=== PATIENT | female | born 1940 | race African-American/Black ===

== ENCOUNTER 2017-04-13 17:45 | Emergency (ER) | payer MEDICARE, OTHER ==
[~2017-04-13] VITALS: Ht 165.1 cm; Wt 95.0 kg
[2017-04-13 18:56] LABS: BASOPHILS % 0.6 % (0.0-2.0); EOSINOPHILS % 6.5 % (0.0-5.0); HEMATOCRIT. 41.4 % (36.0-48.0); HEMOGLOBIN. 13.6 g/dL (12.0-16.0); LYMPHOCYTES % 31.1 % (20.0-50.0); MEAN CORPUSCULAR HEMOGLOBIN 28.9 pg (28.0-32.0); MEAN CORPUSCULAR VOLUME 88.1 fL (81.0-99.0); MEAN PLATELET VOLUME 11.2 fl (7.4-10.4); MONOCYTES % 6.6 % (2.0-8.0); NEUTROPHILS % 55.2 % (40.0-76.0); PLATELET 148 x1000/uL (130-400); RED CELL DISTRIBUTION WIDTH 13.7 % (11.6-14.6)
[2017-04-13 18:59] LABS: CHLORIDE 106 mEq/L (98-107); INR 1.2; PROTHROMBIN TIME 12.1 sec (9.4-11.6)
[2017-04-13 19:03] LABS: ETHANOL BLOOD < 10 mg/dL
[2017-04-13 19:09] LABS: TROPONIN I < 0.02 ng/mL (0.00-0.04)
[2017-04-13] MEDS ORDERED: LEVETIRACETAM 1000MG/100ML 100 ML IV ONE (20:00)
[2017-04-13 20:28] LABS: CLARITY URINE CLOUDY (CLEAR); COLOR URINE YELLOW (YELLOW); KETONES URINE NEGATIVE (NEGATIVE); LEUKOCYTE ESTERASE URINE 2+ (NEGATIVE); NITRITE URINE POSITIVE (NEGATIVE); OCCULT BLOOD URINE TRACE (NEGATIVE); PROTEIN URINE NEGATIVE (NEGATIVE); SPECIFIC GRAVITY URINE 1.013 (1.005-1.030); UROBILINOGEN URINE 0.2 E.U./dL (0.2-1.0)
[2017-04-13 20:48] LABS: *AMPHETAMINES SCREEN URINE NEGATIVE (NEGATIVE); *BENZODIAZEPINES SCREEN URINE NEGATIVE (NEGATIVE); *COCAINE SCREEN URINE NEGATIVE (NEGATIVE); CANNABINOID URINE SCREEN NEGATIVE (NEGATIVE); METHADONE URINE SCREEN NEGATIVE (NEGATIVE); OPIATES URINE SCREEN NEGATIVE (NEGATIVE); PHENCYCLIDINE URINE SCREEN NEGATIVE (NEGATIVE)
[2017-04-13 20:50] LABS: *BARBITURATES SCREEN URINE NEGATIVE (NEGATIVE)
[2017-04-13] MEDS ORDERED: CEFTRIAXONE 1 G PREMIX 50 ML IV SCH (21:15)
[2017-04-13 23:02] VITALS: BP 132/61
== END 2017-04-13 23:05 | disposition home or self-care (01) ==
LOC: ER 17:45
DX: G40.409 Other generalized epilepsy and epileptic syndromes, not intractable, without status epilepticus (principal); N39.0 Urinary tract infection, site not specified; E88.09 Other disorders of plasma-protein metabolism, not elsewhere classified; I10 Essential (primary) hypertension; I25.10 Atherosclerotic heart disease of native coronary artery without angina pectoris; Z86.73 Personal history of transient ischemic attack (TIA), and cerebral infarction without residual deficits
CPT/HCPCS: 36415; 70450; 71045; 80053; 80305; 81003; 82962; 84484; 85025; 85610; 87086; 93005; 96365; 96367; 99285; G0482; J0696; J1953

== ENCOUNTER 2019-09-22 10:35 | Inpatient (IN) | payer MEDICARE, OTHER ==
[~2019-09-22] VITALS: Ht 170.2 cm; Wt 88.0 kg
[2019-09-22] VITALS (10 sets, daily range): BP systolic 104–126; BP diastolic 47–60
[2019-09-22] MEDS ORDERED: MULT-996 MT (11:05)
[2019-09-22] MEDS ORDERED: CORAL CALCIUM (11:05)
[2019-09-22] MEDS ORDERED: METH10TA7 MT (11:05)
[2019-09-22] MEDS ORDERED: CITA20TA75 MT (11:05)
[2019-09-22] MEDS ORDERED: LEVE500T98 MT (11:05)
[2019-09-22] MEDS ORDERED: LOSA50TA41 MT (11:05)
[2019-09-22] MEDS ORDERED: RIVA20TA MT (11:05)
[2019-09-22] MEDS ORDERED: POTA20TA82 MT (11:05)
[2019-09-22] MEDS ORDERED: LOVA40TA73 MT (11:05)
[2019-09-22] MEDS ORDERED: DILT60TA3 MT (11:05)
[2019-09-22] MEDS ORDERED: PANTOPRAZOLE SODIUM 40 MG/VIAL IV ONE ×2 (11:15→12:00)
[2019-09-22] MEDS ORDERED: PANTOPRAZOLE 80 MG in SODIUM CHLORIDE 0.9% 100 ML IV SCH (11:15)
[2019-09-22 11:58] LABS: EOSINOPHILS % 1.7 % (0.0-5.0); LYMPHOCYTES % 29.9 % (20.0-50.0); MEAN CORPUSCULAR HEMOGLOBIN 25.4 pg (28.0-32.0); MEAN CORPUSCULAR VOLUME 80.2 fL (81.0-99.0); MEAN PLATELET VOLUME 9.5 fl (7.4-10.4); MONOCYTES % 8.7 % (2.0-8.0); NEUTROPHILS % 58.7 % (40.0-76.0); PLATELET 211 x1000/uL (130-400); RED BLOOD CELL COUNT 2.05 mill/uL (4.2-5.4); RED CELL DISTRIBUTION WIDTH 18.5 % (11.6-14.6)
[2019-09-22 12:00] LABS: CHLORIDE 115 mEq/L (98-107)
[2019-09-22 12:01] LABS: HEMATOCRIT. 16.5 % (36.0-48.0); HEMOGLOBIN. 5.2 g/dL (12.0-16.0); INR 1.4; PARTIAL THROMBOPLASTIN TIME 30.2 sec (23.4-31.0); PROTHROMBIN TIME 14.1 sec (9.6-11.0)
[2019-09-22] MEDS ORDERED: DILTIAZEM HCL 5MG/ML 5ML VIAL IV NR (12:15)
[2019-09-22] MEDS: SODIUM CHLORIDE 0.9% 1,000 ML IV SCH (18:41)
[2019-09-22] MEDS ORDERED: ONDANSETRON HCL 4MG/2ML INJ IV PRN (20:00)
[2019-09-22] MEDS ORDERED: IPRATROPIUM/ALBUTEROL 0.5-3(2.5)MG/3ML NEB HHN PRN (20:00)
[2019-09-22] MEDS: PANTOPRAZOLE SODIUM 40 MG/VIAL IV SCH (21:08)
[2019-09-23] VITALS (16 sets, daily range): BP systolic 112–138; BP diastolic 47–76
[2019-09-23 00:12] LABS: BASOPHILS % 0.2 % (0.0-2.0); EOSINOPHILS % 0.6 % (0.0-5.0); HEMATOCRIT. 25.2 % (36.0-48.0); HEMOGLOBIN. 8.2 g/dL (12.0-16.0); MEAN CORPUSCULAR HEMOGLOBIN 27.9 pg (28.0-32.0); MEAN CORPUSCULAR VOLUME 85.7 fL (81.0-99.0); MEAN PLATELET VOLUME 9.8 fl (7.4-10.4); MONOCYTES % 7.6 % (2.0-8.0); NEUTROPHILS % 74.6 % (40.0-76.0); PLATELET 170 x1000/uL (130-400); RED BLOOD CELL COUNT 2.94 mill/uL (4.2-5.4); RED CELL DISTRIBUTION WIDTH 17.8 % (11.6-14.6)
[2019-09-23] MEDS: SODIUM CHLORIDE 0.9% 1,000 ML IV SCH ×2 (04:43→13:45)
[2019-09-23 07:34] LABS: BASOPHILS % 0.8 % (0.0-2.0); EOSINOPHILS % 0.8 % (0.0-5.0); HEMATOCRIT. 23.4 % (36.0-48.0); HEMOGLOBIN. 7.9 g/dL (12.0-16.0); LYMPHOCYTES % 15.5 % (20.0-50.0); MEAN CORPUSCULAR HEMOGLOBIN 28.6 pg (28.0-32.0); MONOCYTES % 5.5 % (2.0-8.0); NEUTROPHILS % 77.4 % (40.0-76.0); PLATELET 156 x1000/uL (130-400); RED BLOOD CELL COUNT 2.75 mill/uL (4.2-5.4); RED CELL DISTRIBUTION WIDTH 18.4 % (11.6-14.6)
[2019-09-23] MEDS: PANTOPRAZOLE SODIUM 40 MG/VIAL IV SCH ×2 (08:37→21:07)
[2019-09-23] MEDS ORDERED: MIDAZOLAM HCL 5 MG/5 ML VIAL ONE ×2 (10:33→10:34)
[2019-09-23] MEDS ORDERED: FENTANYL CITRATE/PF 50MCG/ML 2ML VIAL ONE (10:33)
[2019-09-23] MEDS ORDERED: FENTANYL CITRATE/PF 50MCG/ML 2ML VIAL IV ONE (10:57)
[2019-09-23] MEDS ORDERED: MIDAZOLAM HCL 5 MG/5 ML VIAL IV ONE (10:58)
[2019-09-23 11:06] LABS: INR 1.1
[2019-09-23] MEDS ORDERED: SORBITOL 70% SOLN 30ML PO NR ×2 (17:30→21:00)
[2019-09-23] MEDS ORDERED: NA PHOS,M-B/NA PHOS,DI-BA ENEMA 118ML PR NR (17:30)
[2019-09-23 20:28] LABS: HEMATOCRIT 20.9 % (36.0-48.0)
[2019-09-24] VITALS (12 sets, daily range): BP systolic 116–128; BP diastolic 58–80
[2019-09-24] MEDS: SODIUM CHLORIDE 0.9% 1,000 ML IV SCH ×3 (00:39→19:22)
[2019-09-24 01:50] LABS: HEMATOCRIT 27.3 % (36.0-48.0); HEMOGLOBIN 9.3 g/dL (12.0-16.0)
[2019-09-24 06:40] LABS: CHLORIDE 122 mEq/L (98-107)
[2019-09-24] MEDS: DILTIAZEM HCL 125 MG in DEXT 5% WATER 100 ML IV SCH (08:11)
[2019-09-24] MEDS ORDERED: KCL 20MEQ/100ML PREMIX 100 ML IV SCH ×2 (09:00→12:00)
[2019-09-24] MEDS ORDERED: SORBITOL 70% SOLN 30ML PO NR (09:00)
[2019-09-24] MEDS: PANTOPRAZOLE SODIUM 40 MG/VIAL IV SCH ×2 (09:29→20:57)
[2019-09-24] MEDS ORDERED: NA PHOS,M-B/NA PHOS,DI-BA ENEMA 118ML PR NR (11:00)
[2019-09-24] MEDS ORDERED: POTASSIUM CHLORIDE INJ 40 MEQ in DEXT 5% WATER 250 ML IV NR (16:00)
[2019-09-24] MEDS ORDERED: MIDAZOLAM HCL 5 MG/5 ML VIAL IV PRN (17:40)
[2019-09-24] MEDS ORDERED: MIDAZOLAM HCL 5 MG/5 ML VIAL ONE (17:45)
[2019-09-25] VITALS (36 sets, daily range): BP systolic 57–173; BP diastolic 17–118
[2019-09-25] MEDS: DILTIAZEM HCL 125 MG in DEXT 5% WATER 100 ML IV SCH (03:11)
[2019-09-25] MEDS: SODIUM CHLORIDE 0.9% 1,000 ML IV SCH (06:30)
[2019-09-25 07:09] LABS: CHLORIDE 125 mEq/L (98-107)
[2019-09-25 07:17] LABS: TOTAL IRON BINDING CAPACITY 279 ug/dL (250-450)
[2019-09-25 07:36] LABS: VITAMIN B12 SERUM 1839 pg/mL (211-911)
[2019-09-25 07:57] LABS: BASOPHILS % 0.7 % (0.0-2.0); EOSINOPHILS % 2.3 % (0.0-5.0); HEMATOCRIT. 30.4 % (36.0-48.0); HEMOGLOBIN. 9.8 g/dL (12.0-16.0); LYMPHOCYTES % 18.7 % (20.0-50.0); MEAN CORPUSCULAR VOLUME 86.5 fL (81.0-99.0); MEAN PLATELET VOLUME 10.4 fl (7.4-10.4); MONOCYTES % 5.3 % (2.0-8.0); PLATELET 155 x1000/uL (130-400); RED BLOOD CELL COUNT 3.51 mill/uL (4.2-5.4); RED CELL DISTRIBUTION WIDTH 18.2 % (11.6-14.6)
[2019-09-25] MEDS: PANTOPRAZOLE SODIUM 40 MG/VIAL IV SCH ×2 (09:21→22:08)
[2019-09-25] MEDS: DEXT 5% WATER + KCL 20MEQ/L 1,000 ML IV SCH ×2 (10:42→22:17)
[2019-09-25] MEDS: FERROUS SULFATE 325MG TABLET PO SCH ×2 (12:07→19:08)
[2019-09-25 13:19] LABS: T4 FREE 1.25 ng/dL (0.76-1.46)
[2019-09-25] MEDS: DILTIAZEM HCL 30MG TABLET PO SCH ×2 (13:36→22:08)
[2019-09-25] MEDS ORDERED: DILTIAZEM HCL 5MG/ML 5ML VIAL IV ONE ×2 (16:00→16:08)
[2019-09-25 17:08] LABS: BG BASE EXCESS -16.6 mmol/L (-2.0-2.0); BG CARBOXYHEMOGLOBIN 0.2 % (0.5-1.5); BG DEOXYHEMOGLOBIN 3.5 % (0.0-5.0); BG HCO3 ACT 7.5 mmol/L (22.0-26.0); BG METHEMOGLOBIN 1.1 % (0.0-1.5); BG OXYGEN SATURATION 96.5 % (92.0-98.5); BG OXYHEMOGLOBIN 95.2 % (94.0-97.0); BG PCO2 13.2 mmHg (35.0-45.0); BG PO2 97.2 mmHg (75.0-100.0); BG SAMPLE SITE RIGHT RADIAL; BG TIDAL VOLUME(mL) 500 mL; BG TOTAL HEMOGLOBIN 4.6 g/dL (12.0-18.0); BG VENT MODE VENT - A/C; BG VENT RATE 16 set
[2019-09-25] MEDS ORDERED: SODIUM BICARBONATE 8.4% 1 MEQ/ML 50ML SYR IV ONE (17:24)
[2019-09-25] MEDS ORDERED: SODIUM BICARBONATE 8.4% 1 MEQ/ML 50ML SYR IV NR (17:45)
[2019-09-25] MEDS: IPRATROPIUM BROMIDE (0.02%) 0.5MG/2.5ML NEB HHN SCH (20:35)
[2019-09-25] MEDS ORDERED: LORAZEPAM 2MG/ML CPJ ONE (21:25)
[2019-09-25] MEDS ORDERED: LORAZEPAM 2MG/ML CPJ IV ONE (21:30)
[2019-09-25] MEDS: DILTIAZEM HCL 125 MG in DEXT 5% WATER 100 ML IV PRN (22:06)
[2019-09-25] MEDS: LEVETIRACETAM 500MG PREMIX 100 ML IV SCH (22:06)
[2019-09-25] MEDS: PROPOFOL 10MG/ML 100ML 100 ML IV PRN (23:27)
[2019-09-26] VITALS (68 sets, daily range): BP systolic 109–144; BP diastolic 58–79
[2019-09-26] MEDS: IPRATROPIUM BROMIDE (0.02%) 0.5MG/2.5ML NEB HHN SCH ×4 (01:54→20:53)
[2019-09-26] MEDS: DILTIAZEM HCL 30MG TABLET PO SCH ×3 (05:40→23:08)
[2019-09-26] MEDS: DEXT 5% WATER + KCL 20MEQ/L 1,000 ML IV SCH ×4 (05:40→23:08)
[2019-09-26 07:01] LABS: CHLORIDE 119 mEq/L (98-107)
[2019-09-26] MEDS: PANTOPRAZOLE SODIUM 40 MG/VIAL IV SCH ×2 (08:30→20:44)
[2019-09-26 08:31] LABS: BG BASE EXCESS -0.4 mmol/L (-2.0-2.0); BG CARBOXYHEMOGLOBIN 0.2 % (0.5-1.5); BG DEOXYHEMOGLOBIN 1.1 % (0.0-5.0); BG FRACTION INSPIRED OXYGEN 50; BG METHEMOGLOBIN 0.3 % (0.0-1.5); BG OXYGEN SATURATION 98.9 % (92.0-98.5); BG OXYHEMOGLOBIN 98.4 % (94.0-97.0); BG PCO2 28.4 mmHg (35.0-45.0); BG PH 7.507 (7.350-7.450); BG PO2 344.2 mmHg (75.0-100.0); BG SAMPLE SITE RIGHT RADIAL; BG TIDAL VOLUME(mL) 500 mL; BG TOTAL HEMOGLOBIN 10.2 g/dL (12.0-18.0); BG VENT MODE VENT - A/C; BG VENT RATE 16 set
[2019-09-26] MEDS: FERROUS SULFATE 325MG TABLET PO SCH ×2 (08:31→17:46)
[2019-09-26] MEDS: METHIMAZOLE 5MG TABLET NG SCH (08:31)
[2019-09-26] MEDS: PROPOFOL 10MG/ML 100ML 100 ML IV PRN (08:33)
[2019-09-26] MEDS: LEVETIRACETAM 500MG PREMIX 100 ML IV SCH ×2 (09:19→20:44)
[2019-09-26] MEDS ORDERED: POTASSIUM CHLORIDE 20MEQ/PACKET PO NR (10:00)
[2019-09-26 10:26] LABS: HEMATOCRIT. 30.7 % (36.0-48.0); HEMOGLOBIN. 9.9 g/dL (12.0-16.0); MEAN CORPUSCULAR VOLUME 86.6 fL (81.0-99.0); MEAN PLATELET VOLUME 10.7 fl (7.4-10.4); PLATELET 127 x1000/uL (130-400); RED BLOOD CELL COUNT 3.55 mill/uL (4.2-5.4); RED CELL DISTRIBUTION WIDTH 18.9 % (11.6-14.6)
[2019-09-26] MEDS ORDERED: LORAZEPAM 2MG/ML CPJ IV NR (10:45)
[2019-09-26 13:43] LABS: PLATELET ESTIMATE SLIGHTLY DECREASED
[2019-09-26] MEDS: AMIODARONE HCL 200 MG TABLET PO SCH (17:46)
[2019-09-26] MEDS ORDERED: RIVAROXABAN 10 MG TABLET PO SCH (18:20)
[2019-09-27] VITALS (68 sets, daily range): BP systolic 103–158; BP diastolic 46–88
[2019-09-27] MEDS: IPRATROPIUM BROMIDE (0.02%) 0.5MG/2.5ML NEB HHN SCH ×3 (00:27→12:56)
[2019-09-27 05:49] LABS: BASOPHILS % 0.3 % (0.0-2.0); EOSINOPHILS % 1.5 % (0.0-5.0); HEMATOCRIT. 30.7 % (36.0-48.0); HEMOGLOBIN. 9.8 g/dL (12.0-16.0); MEAN CORPUSCULAR HEMOGLOBIN 27.3 pg (28.0-32.0); MEAN CORPUSCULAR VOLUME 85.8 fL (81.0-99.0); MEAN PLATELET VOLUME 9.9 fl (7.4-10.4); MONOCYTES % 7.3 % (2.0-8.0); NEUTROPHILS % 80.9 % (40.0-76.0); PLATELET 90 x1000/uL (130-400); RED BLOOD CELL COUNT 3.58 mill/uL (4.2-5.4); RED CELL DISTRIBUTION WIDTH 18.2 % (11.6-14.6)
[2019-09-27] MEDS: DILTIAZEM HCL 30MG TABLET PO SCH ×3 (05:51→21:48)
[2019-09-27] MEDS: DEXT 5% WATER + KCL 20MEQ/L 1,000 ML IV SCH ×2 (07:07→15:39)
[2019-09-27 07:20] LABS: BG BASE EXCESS -1.1 mmol/L (-2.0-2.0); BG CARBOXYHEMOGLOBIN 0.3 % (0.5-1.5); BG DEOXYHEMOGLOBIN 1.7 % (0.0-5.0); BG FRACTION INSPIRED OXYGEN 35; BG HCO3 ACT 22.3 mmol/L (22.0-26.0); BG METHEMOGLOBIN 0.3 % (0.0-1.5); BG OXYGEN SATURATION 98.3 % (92.0-98.5); BG OXYHEMOGLOBIN 97.7 % (94.0-97.0); BG PCO2 32.3 mmHg (35.0-45.0); BG PH 7.457 (7.350-7.450); BG PO2 135.5 mmHg (75.0-100.0); BG SAMPLE SITE RIGHT RADIAL; BG TIDAL VOLUME(mL) 500 mL; BG TOTAL HEMOGLOBIN 10.1 g/dL (12.0-18.0); BG VENT MODE VENT - A/C; BG VENT RATE 12 set
[2019-09-27 08:16] LABS: CHLORIDE 112 mEq/L (98-107)
[2019-09-27] MEDS: PANTOPRAZOLE SODIUM 40 MG/VIAL IV SCH ×2 (08:27→21:47)
[2019-09-27] MEDS: AMIODARONE HCL 200 MG TABLET PO SCH ×3 (08:27→18:34)
[2019-09-27] MEDS: FERROUS SULFATE 325MG TABLET PO SCH ×2 (08:27→18:34)
[2019-09-27] MEDS: METHIMAZOLE 5MG TABLET NG SCH (08:27)
[2019-09-27] MEDS: DILTIAZEM HCL 125 MG in DEXT 5% WATER 100 ML IV PRN ×2 (09:04→15:29)
[2019-09-27] MEDS: LEVETIRACETAM 500MG PREMIX 100 ML IV SCH ×2 (09:12→21:48)
[2019-09-27] MEDS ORDERED: DILTIAZEM HCL 5MG/ML 5ML VIAL IV NR (09:30)
[2019-09-27] MEDS ORDERED: DILTIAZEM HCL 5MG/ML 5ML VIAL IV ONE (09:30)
[2019-09-27] MEDS: DILTIAZEM HCL 5MG/ML 5ML VIAL IV NR ×3 (10:23→11:11)
[2019-09-27] MEDS ORDERED: MORPHINE SULFATE 2 MG/ML CPJ (NOT FOR IM USE) IV PRN (12:15)
[2019-09-27] MEDS ORDERED: LORAZEPAM 2MG/ML CPJ IV PRN (12:15)
[2019-09-27 13:24] LABS: T4 FREE 1.75 ng/dL (0.76-1.46)
[2019-09-27] MEDS: ENOXAPARIN 30MG/0.3ML SYR SUBCUT SCH ×2 (16:00→16:45)
[2019-09-27] MEDS: ACETAMINOPHEN 325MG TABLET PO PRN ×2 (16:45→19:07)
[2019-09-27] MEDS: ASPIRIN 81MG TABLET PO SCH (16:47)
[2019-09-27] MEDS: METHIMAZOLE 10MG TABLET NG SCH (22:48)
[2019-09-28] VITALS (93 sets, daily range): BP systolic 104–143; BP diastolic 49–87
[2019-09-28] MEDS: IPRATROPIUM BROMIDE (0.02%) 0.5MG/2.5ML NEB HHN SCH ×4 (02:15→20:10)
[2019-09-28] MEDS: METHIMAZOLE 10MG TABLET NG SCH ×3 (05:26→21:54)
[2019-09-28] MEDS: DILTIAZEM HCL 30MG TABLET PO SCH ×3 (05:26→21:54)
[2019-09-28] MEDS: DEXT 5% WATER + KCL 20MEQ/L 1,000 ML IV SCH (05:27)
[2019-09-28 07:10] LABS: HEMATOCRIT. 27.2 % (36.0-48.0); HEMOGLOBIN. 8.9 g/dL (12.0-16.0); MEAN CORPUSCULAR HEMOGLOBIN 27.4 pg (28.0-32.0); MEAN CORPUSCULAR VOLUME 84.1 fL (81.0-99.0); MEAN PLATELET VOLUME 10.4 fl (7.4-10.4); PLATELET 80 x1000/uL (130-400); RED BLOOD CELL COUNT 3.23 mill/uL (4.2-5.4); RED CELL DISTRIBUTION WIDTH 19.2 % (11.6-14.6)
[2019-09-28 07:13] LABS: CHLORIDE 112 mEq/L (98-107)
[2019-09-28] MEDS: FERROUS SULFATE 325MG TABLET PO SCH ×2 (08:41→16:29)
[2019-09-28] MEDS: PANTOPRAZOLE SODIUM 40 MG/VIAL IV SCH ×2 (08:41→20:35)
[2019-09-28] MEDS: ASPIRIN 81MG TABLET PO SCH (08:41)
[2019-09-28] MEDS: AMIODARONE HCL 200 MG TABLET PO SCH ×3 (08:42→16:29)
[2019-09-28] MEDS: LEVETIRACETAM 500MG PREMIX 100 ML IV SCH ×2 (08:42→20:35)
[2019-09-28] MEDS: ENOXAPARIN 30MG/0.3ML SYR SUBCUT SCH (08:42)
[2019-09-28 09:35] LABS: PLATELET ESTIMATE DECREASED
[2019-09-28 12:17] LABS: BG BASE EXCESS 0.4 mmol/L (-2.0-2.0); BG CARBOXYHEMOGLOBIN 0.3 % (0.5-1.5); BG DEOXYHEMOGLOBIN 2.9 % (0.0-5.0); BG FRACTION INSPIRED OXYGEN 30; BG HCO3 ACT 23.1 mmol/L (22.0-26.0); BG METHEMOGLOBIN 0.3 % (0.0-1.5); BG OXYGEN SATURATION 97.1 % (92.0-98.5); BG OXYHEMOGLOBIN 96.5 % (94.0-97.0); BG PCO2 29.9 mmHg (35.0-45.0); BG PH 7.505 (7.350-7.450); BG PO2 90.9 mmHg (75.0-100.0); BG PRESSURE SUPPORT 8; BG SAMPLE SITE RIGHT BRACHIAL; BG TOTAL HEMOGLOBIN 9.3 g/dL (12.0-18.0); BG VENT MODE VENT - CPAP
[2019-09-28] MEDS: ACETAMINOPHEN 325MG TABLET PO PRN (13:20)
[2019-09-28] MEDS: DILTIAZEM HCL 125 MG in DEXT 5% WATER 100 ML IV PRN (14:04)
[2019-09-29] VITALS (88 sets, daily range): BP systolic 93–143; BP diastolic 44–80
[2019-09-29] MEDS: IPRATROPIUM BROMIDE (0.02%) 0.5MG/2.5ML NEB HHN SCH ×5 (03:56→20:56)
[2019-09-29 05:33] LABS: HEMATOCRIT. 27.4 % (36.0-48.0); HEMOGLOBIN. 8.9 g/dL (12.0-16.0); MEAN CORPUSCULAR HEMOGLOBIN 27.6 pg (28.0-32.0); MEAN CORPUSCULAR VOLUME 85.2 fL (81.0-99.0); MEAN PLATELET VOLUME 10.9 fl (7.4-10.4); RED BLOOD CELL COUNT 3.22 mill/uL (4.2-5.4); RED CELL DISTRIBUTION WIDTH 19.2 % (11.6-14.6)
[2019-09-29] MEDS: METHIMAZOLE 10MG TABLET NG SCH ×3 (05:33→21:21)
[2019-09-29] MEDS: DILTIAZEM HCL 30MG TABLET PO SCH ×3 (05:33→21:22)
[2019-09-29 05:43] LABS: CHLORIDE 111 mEq/L (98-107)
[2019-09-29 07:53] LABS: PLATELET 46 x1000/uL (130-400)
[2019-09-29] MEDS: FERROUS SULFATE 325MG TABLET PO SCH ×2 (08:37→18:40)
[2019-09-29] MEDS: ASPIRIN 81MG TABLET PO SCH (08:37)
[2019-09-29] MEDS: LEVETIRACETAM 500MG PREMIX 100 ML IV SCH ×2 (08:37→20:39)
[2019-09-29] MEDS: PANTOPRAZOLE SODIUM 40 MG/VIAL IV SCH ×2 (08:37→20:39)
[2019-09-29] MEDS: AMIODARONE HCL 200 MG TABLET PO SCH ×3 (08:38→16:41)
[2019-09-29 10:33] LABS: PLATELET ESTIMATE DECREASED
[2019-09-29] MEDS: IRON SUCROSE COMPLEX 100 MG/5 ML ML IV SCH (12:49)
[2019-09-29] MEDS: DILTIAZEM HCL 125 MG in DEXT 5% WATER 100 ML IV PRN (15:06)
[2019-09-29] MEDS: ACETAMINOPHEN 325MG TABLET PO PRN (16:41)
[2019-09-30] VITALS (61 sets, daily range): BP systolic 100–133; BP diastolic 52–92
[2019-09-30] MEDS: IPRATROPIUM BROMIDE (0.02%) 0.5MG/2.5ML NEB HHN SCH ×4 (00:52→20:16)
[2019-09-30] MEDS: METHIMAZOLE 10MG TABLET NG SCH ×3 (05:58→22:11)
[2019-09-30] MEDS: DILTIAZEM HCL 30MG TABLET PO SCH ×3 (05:58→22:17)
[2019-09-30 07:33] LABS: BASOPHILS % 0.3 % (0.0-2.0); EOSINOPHILS % 2.9 % (0.0-5.0); HEMATOCRIT. 25.4 % (36.0-48.0); HEMOGLOBIN. 8.4 g/dL (12.0-16.0); LYMPHOCYTES % 10.8 % (20.0-50.0); MEAN CORPUSCULAR HEMOGLOBIN 27.7 pg (28.0-32.0); MEAN CORPUSCULAR VOLUME 83.6 fL (81.0-99.0); MEAN PLATELET VOLUME 10.7 fl (7.4-10.4); MONOCYTES % 7.8 % (2.0-8.0); NEUTROPHILS % 78.2 % (40.0-76.0); PLATELET 91 x1000/uL (130-400); RED BLOOD CELL COUNT 3.04 mill/uL (4.2-5.4); RED CELL DISTRIBUTION WIDTH 19.5 % (11.6-14.6)
[2019-09-30 07:34] LABS: CHLORIDE 109 mEq/L (98-107)
[2019-09-30] MEDS: AMIODARONE HCL 200 MG TABLET PO SCH ×3 (08:29→17:12)
[2019-09-30] MEDS: FERROUS SULFATE 325MG TABLET PO SCH (08:29)
[2019-09-30] MEDS: ASPIRIN 81MG TABLET PO SCH (08:29)
[2019-09-30] MEDS: LEVETIRACETAM 500MG PREMIX 100 ML IV SCH ×2 (08:29→20:45)
[2019-09-30] MEDS: IRON SUCROSE COMPLEX 100 MG/5 ML ML IV SCH (08:30)
[2019-09-30] MEDS: PANTOPRAZOLE SODIUM 40 MG/VIAL IV SCH ×2 (08:30→20:44)
[2019-09-30] MEDS: DILTIAZEM HCL 125 MG in DEXT 5% WATER 100 ML IV PRN (11:26)
[2019-09-30] MEDS: ACETAMINOPHEN 325MG TABLET PO PRN (17:38)
[2019-10-01] VITALS (47 sets, daily range): BP systolic 96–137; BP diastolic 55–79
[2019-10-01] MEDS: IPRATROPIUM BROMIDE (0.02%) 0.5MG/2.5ML NEB HHN SCH ×4 (00:34→20:27)
[2019-10-01] MEDS: DILTIAZEM HCL 30MG TABLET PO SCH ×3 (06:00→21:48)
[2019-10-01] MEDS: METHIMAZOLE 10MG TABLET NG SCH ×3 (06:00→21:48)
[2019-10-01 06:42] LABS: BASOPHILS % 0.8 % (0.0-2.0); EOSINOPHILS % 2.2 % (0.0-5.0); HEMATOCRIT. 27.8 % (36.0-48.0); LYMPHOCYTES % 12.7 % (20.0-50.0); MEAN CORPUSCULAR HEMOGLOBIN 27.4 pg (28.0-32.0); MEAN CORPUSCULAR VOLUME 84.4 fL (81.0-99.0); MEAN PLATELET VOLUME 11.7 fl (7.4-10.4); MONOCYTES % 7.6 % (2.0-8.0); NEUTROPHILS % 76.7 % (40.0-76.0); PLATELET 116 x1000/uL (130-400); RED BLOOD CELL COUNT 3.29 mill/uL (4.2-5.4); RED CELL DISTRIBUTION WIDTH 20.1 % (11.6-14.6)
[2019-10-01 06:49] LABS: CHLORIDE 109 mEq/L (98-107)
[2019-10-01] MEDS: LEVETIRACETAM 500MG PREMIX 100 ML IV SCH ×2 (08:03→21:49)
[2019-10-01] MEDS: IRON SUCROSE COMPLEX 100 MG/5 ML ML IV SCH (08:04)
[2019-10-01] MEDS: PANTOPRAZOLE SODIUM 40 MG/VIAL IV SCH ×2 (08:04→21:49)
[2019-10-01] MEDS: AMIODARONE HCL 200 MG TABLET PO SCH ×2 (09:00→17:21)
[2019-10-01] MEDS: ASPIRIN 81MG TABLET PO SCH (09:00)
[2019-10-01] MEDS ORDERED: MIDAZOLAM HCL 2 MG/2 ML VIAL ONE (09:30)
[2019-10-01] MEDS ORDERED: VECURONIUM BROMIDE 10 MG/VIAL IV ONE (09:31)
[2019-10-01] MEDS ORDERED: CEFAZOLIN SODIUM 1000MG/VIAL ONE (10:00)
[2019-10-01] MEDS: DILTIAZEM HCL 125 MG in DEXT 5% WATER 100 ML IV PRN (10:18)
[2019-10-01] MEDS ORDERED: MAGNESIUM HYDROXIDE 400MG/5ML 30ML UDC PO SCH (13:30)
[2019-10-01] MEDS: ACETAMINOPHEN 325MG TABLET PO PRN (17:21)
[2019-10-02] VITALS (65 sets, daily range): BP systolic 89–139; BP diastolic 50–76
[2019-10-02] MEDS: IPRATROPIUM BROMIDE (0.02%) 0.5MG/2.5ML NEB HHN SCH ×4 (00:57→20:21)
[2019-10-02] MEDS: DILTIAZEM HCL 125 MG in DEXT 5% WATER 100 ML IV PRN (04:55)
[2019-10-02] MEDS: METHIMAZOLE 10MG TABLET NG SCH ×3 (05:03→21:59)
[2019-10-02] MEDS: DILTIAZEM HCL 30MG TABLET PO SCH ×3 (05:03→21:59)
[2019-10-02 06:09] LABS: BASOPHILS % 0.9 % (0.0-2.0); EOSINOPHILS % 3.5 % (0.0-5.0); HEMATOCRIT. 26.9 % (36.0-48.0); HEMOGLOBIN. 8.8 g/dL (12.0-16.0); LYMPHOCYTES % 9.3 % (20.0-50.0); MEAN CORPUSCULAR HEMOGLOBIN 27.8 pg (28.0-32.0); MEAN CORPUSCULAR VOLUME 84.8 fL (81.0-99.0); MEAN PLATELET VOLUME 12.1 fl (7.4-10.4); NEUTROPHILS % 79.3 % (40.0-76.0); PLATELET 143 x1000/uL (130-400); RED BLOOD CELL COUNT 3.17 mill/uL (4.2-5.4); RED CELL DISTRIBUTION WIDTH 20.4 % (11.6-14.6)
[2019-10-02 06:19] LABS: CHLORIDE 108 mEq/L (98-107)
[2019-10-02 06:24] LABS: INR 1.1; PROTHROMBIN TIME 11.5 sec (9.6-11.0)
[2019-10-02 07:49] LABS: BG BASE EXCESS 4.6 mmol/L (-2.0-2.0); BG CARBOXYHEMOGLOBIN 0.2 % (0.5-1.5); BG DEOXYHEMOGLOBIN 9.3 % (0.0-5.0); BG FRACTION INSPIRED OXYGEN 30; BG HCO3 ACT 28.3 mmol/L (22.0-26.0); BG METHEMOGLOBIN 0.3 % (0.0-1.5); BG OXYGEN SATURATION 90.7 % (92.0-98.5); BG OXYHEMOGLOBIN 90.2 % (94.0-97.0); BG PCO2 38.4 mmHg (35.0-45.0); BG PH 7.486 (7.350-7.450); BG PO2 58.9 mmHg (75.0-100.0); BG SAMPLE SITE RIGHT BRACHIAL; BG TIDAL VOLUME(mL) 500 mL; BG TOTAL HEMOGLOBIN 8.5 g/dL (12.0-18.0); BG VENT MODE VENT - A/C; BG VENT RATE 12 set
[2019-10-02] MEDS: AMIODARONE HCL 200 MG TABLET PO SCH (09:10)
[2019-10-02] MEDS: ASPIRIN 81MG TABLET PO SCH (09:10)
[2019-10-02] MEDS: LEVETIRACETAM 500MG PREMIX 100 ML IV SCH ×2 (09:10→21:59)
[2019-10-02] MEDS: PANTOPRAZOLE SODIUM 40 MG/VIAL IV SCH ×2 (09:10→21:59)
[2019-10-02] MEDS ORDERED: DILTIAZEM HCL 125 MG in DEXT 5% WATER 100 ML IV SCH (11:00)
[2019-10-02] MEDS ORDERED: ACETAZOLAMIDE SODIUM 500MG/VIAL IV NR (12:00)
[2019-10-02] MEDS: ACETAMINOPHEN 325MG TABLET PO PRN (12:49)
[2019-10-02] MEDS ORDERED: MIDAZOLAM HCL 5 MG/5 ML VIAL ONE (15:28)
[2019-10-02] MEDS ORDERED: MIDAZOLAM HCL 5 MG/5 ML VIAL IV PRN (15:28)
[2019-10-02] MEDS ORDERED: FENTANYL CITRATE/PF 50MCG/ML 2ML VIAL IV PRN (15:29)
[2019-10-02] MEDS ORDERED: FENTANYL CITRATE/PF 50MCG/ML 2ML VIAL ONE (15:29)
[2019-10-02] MEDS ORDERED: CEFAZOLIN 1000MG PREMIX 50 ML IV NR (16:00)
[2019-10-02] MEDS ORDERED: DEXTROSE 50% WATER 50ML SYRINGE IV PRN (19:15)
[2019-10-02] MEDS: BLOOD SUGAR DIAGNOSTIC STRIP TEST SCH (23:33)
[2019-10-02] MEDS: INSULIN LISPRO 100 UNITS/ML SUBCUT SCH (23:33)
[2019-10-03] VITALS (34 sets, daily range): BP systolic 96–126; BP diastolic 54–70
[2019-10-03] MEDS: IPRATROPIUM BROMIDE (0.02%) 0.5MG/2.5ML NEB HHN SCH ×3 (02:18→19:58)
[2019-10-03] MEDS: BLOOD SUGAR DIAGNOSTIC STRIP TEST SCH ×3 (05:06→17:50)
[2019-10-03] MEDS: INSULIN LISPRO 100 UNITS/ML SUBCUT SCH ×3 (05:06→17:51)
[2019-10-03] MEDS: ACETAMINOPHEN 325MG TABLET PO PRN (05:24)
[2019-10-03] MEDS: DILTIAZEM HCL 30MG TABLET PO SCH ×3 (06:00→22:00)
[2019-10-03] MEDS: METHIMAZOLE 10MG TABLET NG SCH ×3 (06:00→22:00)
[2019-10-03 06:59] LABS: BASOPHILS % 0.6 % (0.0-2.0); EOSINOPHILS % 1.3 % (0.0-5.0); HEMATOCRIT. 27.3 % (36.0-48.0); HEMOGLOBIN. 8.7 g/dL (12.0-16.0); LYMPHOCYTES % 9.7 % (20.0-50.0); MEAN CORPUSCULAR HEMOGLOBIN 27.6 pg (28.0-32.0); MEAN CORPUSCULAR VOLUME 86.7 fL (81.0-99.0); MEAN PLATELET VOLUME 12.5 fl (7.4-10.4); MONOCYTES % 5.2 % (2.0-8.0); NEUTROPHILS % 83.2 % (40.0-76.0); PLATELET 144 x1000/uL (130-400); RED BLOOD CELL COUNT 3.15 mill/uL (4.2-5.4); RED CELL DISTRIBUTION WIDTH 20.9 % (11.6-14.6)
[2019-10-03 07:31] LABS: CHLORIDE 110 mEq/L (98-107)
[2019-10-03] MEDS: ASPIRIN 81MG TABLET PO SCH (08:48)
[2019-10-03] MEDS: PANTOPRAZOLE SODIUM 40 MG/VIAL IV SCH ×2 (08:48→20:22)
[2019-10-03] MEDS: AMIODARONE HCL 200 MG TABLET PO SCH (08:49)
[2019-10-03] MEDS: LEVETIRACETAM 500MG PREMIX 100 ML IV SCH ×2 (08:49→20:22)
[2019-10-03] MEDS: CARVEDILOL 3.125 MG TABLET GT SCH (20:22)
[2019-10-04] VITALS (12 sets, daily range): BP systolic 113–141; BP diastolic 52–70
[2019-10-04] MEDS: BLOOD SUGAR DIAGNOSTIC STRIP TEST SCH ×5 (00:19→23:57)
[2019-10-04] MEDS: INSULIN LISPRO 100 UNITS/ML SUBCUT SCH ×5 (00:20→23:57)
[2019-10-04] MEDS: IPRATROPIUM BROMIDE (0.02%) 0.5MG/2.5ML NEB HHN SCH ×4 (01:58→21:15)
[2019-10-04] MEDS: METHIMAZOLE 10MG TABLET NG SCH ×3 (05:46→21:48)
[2019-10-04] MEDS: DILTIAZEM HCL 30MG TABLET PO SCH ×3 (05:48→22:30)
[2019-10-04] MEDS: LEVETIRACETAM 500MG PREMIX 100 ML IV SCH ×2 (08:31→21:48)
[2019-10-04] MEDS: CARVEDILOL 3.125 MG TABLET GT SCH ×2 (08:32→21:49)
[2019-10-04] MEDS: ASPIRIN 81MG TABLET PO SCH (08:32)
[2019-10-04] MEDS: AMIODARONE HCL 200 MG TABLET PO SCH (08:32)
[2019-10-04] MEDS: PANTOPRAZOLE SODIUM 40 MG/VIAL IV SCH ×2 (08:32→21:48)
[2019-10-04] MEDS ORDERED: NON FORMULARY PATIENT HOME MED XX SCH (09:45)
[2019-10-04 10:29] LABS: EOSINOPHILS % 3.6 % (0.0-5.0); HEMATOCRIT. 24.5 % (36.0-48.0); LYMPHOCYTES % 11.8 % (20.0-50.0); MEAN CORPUSCULAR HEMOGLOBIN 28.2 pg (28.0-32.0); MEAN CORPUSCULAR VOLUME 86.6 fL (81.0-99.0); MEAN PLATELET VOLUME 10.9 fl (7.4-10.4); MONOCYTES % 6.2 % (2.0-8.0); NEUTROPHILS % 77.4 % (40.0-76.0); PLATELET 168 x1000/uL (130-400); RED BLOOD CELL COUNT 2.83 mill/uL (4.2-5.4); RED CELL DISTRIBUTION WIDTH 20.9 % (11.6-14.6)
[2019-10-04 10:41] LABS: CHLORIDE 110 mEq/L (98-107)
[2019-10-04] MEDS: ENOXAPARIN 30MG/0.3ML SYR SUBCUT SCH (11:32)
[2019-10-04] MEDS: ATORVASTATIN CALCIUM 10MG TABLET PO SCH (21:49)
[2019-10-05] VITALS (11 sets, daily range): BP systolic 119–142; BP diastolic 57–74
[2019-10-05] MEDS: IPRATROPIUM BROMIDE (0.02%) 0.5MG/2.5ML NEB HHN SCH ×5 (01:05→19:53)
[2019-10-05] MEDS: INSULIN LISPRO 100 UNITS/ML SUBCUT SCH ×3 (06:00→17:51)
[2019-10-05] MEDS: METHIMAZOLE 10MG TABLET NG SCH ×3 (06:10→21:44)
[2019-10-05] MEDS: DILTIAZEM HCL 30MG TABLET PO SCH ×3 (06:10→21:45)
[2019-10-05] MEDS: BLOOD SUGAR DIAGNOSTIC STRIP TEST SCH ×3 (06:10→17:51)
[2019-10-05] MEDS: ENOXAPARIN 30MG/0.3ML SYR SUBCUT SCH (08:24)
[2019-10-05] MEDS: PANTOPRAZOLE SODIUM 40 MG/VIAL IV SCH ×2 (08:24→21:00)
[2019-10-05] MEDS: CARVEDILOL 3.125 MG TABLET GT SCH ×2 (08:25→21:00)
[2019-10-05] MEDS: AMIODARONE HCL 200 MG TABLET PO SCH (08:25)
[2019-10-05] MEDS: LEVETIRACETAM 500MG PREMIX 100 ML IV SCH ×2 (08:25→21:00)
[2019-10-05] MEDS: ASPIRIN 81MG TABLET PO SCH (08:25)
[2019-10-05] MEDS: ATORVASTATIN CALCIUM 10MG TABLET PO SCH (20:59)
[2019-10-06] VITALS (11 sets, daily range): BP systolic 118–133; BP diastolic 53–66
[2019-10-06] MEDS: DILTIAZEM HCL 30MG TABLET PO SCH ×3 (05:17→23:54)
[2019-10-06] MEDS: METHIMAZOLE 10MG TABLET NG SCH ×3 (05:17→23:54)
[2019-10-06] MEDS: INSULIN LISPRO 100 UNITS/ML SUBCUT SCH ×4 (05:17→18:00)
[2019-10-06] MEDS: BLOOD SUGAR DIAGNOSTIC STRIP TEST SCH ×4 (05:18→18:11)
[2019-10-06] MEDS: ASPIRIN 81MG TABLET PO SCH (08:18)
[2019-10-06] MEDS: AMIODARONE HCL 200 MG TABLET PO SCH (08:18)
[2019-10-06] MEDS: PANTOPRAZOLE SODIUM 40 MG/VIAL IV SCH ×2 (08:19→23:55)
[2019-10-06] MEDS: LEVETIRACETAM 500MG PREMIX 100 ML IV SCH ×2 (08:19→23:53)
[2019-10-06] MEDS: CARVEDILOL 3.125 MG TABLET GT SCH ×2 (08:21→23:54)
[2019-10-06] MEDS: IPRATROPIUM BROMIDE (0.02%) 0.5MG/2.5ML NEB HHN SCH ×3 (09:16→20:26)
[2019-10-06 15:20] LABS: BG BASE EXCESS 5.3 mmol/L (-2.0-2.0); BG CARBOXYHEMOGLOBIN 0.2 % (0.5-1.5); BG FRACTION INSPIRED OXYGEN 35; BG HCO3 ACT 29.4 mmol/L (22.0-26.0); BG METHEMOGLOBIN 0.4 % (0.0-1.5); BG OXYHEMOGLOBIN 97.4 % (94.0-97.0); BG PCO2 40.8 mmHg (35.0-45.0); BG PH 7.475 (7.350-7.450); BG PO2 108.9 mmHg (75.0-100.0); BG PRESSURE SUPPORT 10; BG SAMPLE SITE RIGHT RADIAL; BG TIDAL VOLUME(mL) 500 mL; BG TOTAL HEMOGLOBIN 8.5 g/dL (12.0-18.0); BG VENT MODE VENT - SIMV; BG VENT RATE 6 set
[2019-10-06] MEDS: ATORVASTATIN CALCIUM 10MG TABLET PO SCH (23:54)
[2019-10-07] VITALS (12 sets, daily range): BP systolic 114–146; BP diastolic 51–70
[2019-10-07] MEDS: ACETAMINOPHEN 325MG TABLET PO PRN (01:24)
[2019-10-07] MEDS: IPRATROPIUM BROMIDE (0.02%) 0.5MG/2.5ML NEB HHN SCH ×4 (02:28→20:05)
[2019-10-07] MEDS: INSULIN LISPRO 100 UNITS/ML SUBCUT SCH ×5 (05:29→17:28)
[2019-10-07] MEDS: BLOOD SUGAR DIAGNOSTIC STRIP TEST SCH ×4 (05:29→17:27)
[2019-10-07] MEDS: DILTIAZEM HCL 30MG TABLET PO SCH ×3 (05:30→21:25)
[2019-10-07] MEDS: METHIMAZOLE 10MG TABLET NG SCH ×3 (05:31→21:26)
[2019-10-07] MEDS: PANTOPRAZOLE SODIUM 40 MG/VIAL IV SCH ×2 (08:20→21:24)
[2019-10-07] MEDS: CARVEDILOL 3.125 MG TABLET GT SCH ×2 (08:21→21:26)
[2019-10-07] MEDS: ASPIRIN 81MG TABLET PO SCH (08:21)
[2019-10-07] MEDS: AMIODARONE HCL 200 MG TABLET PO SCH (08:21)
[2019-10-07] MEDS: LEVETIRACETAM 500MG PREMIX 100 ML IV SCH ×2 (08:21→21:26)
[2019-10-07] MEDS: ATORVASTATIN CALCIUM 10MG TABLET PO SCH (21:25)
[2019-10-08] VITALS (12 sets, daily range): BP systolic 123–170; BP diastolic 56–78
[2019-10-08] MEDS: INSULIN LISPRO 100 UNITS/ML SUBCUT SCH ×4 (01:03→17:14)
[2019-10-08] MEDS: IPRATROPIUM BROMIDE (0.02%) 0.5MG/2.5ML NEB HHN SCH ×4 (01:45→20:41)
[2019-10-08] MEDS: BLOOD SUGAR DIAGNOSTIC STRIP TEST SCH ×4 (06:00→17:15)
[2019-10-08] MEDS: METHIMAZOLE 10MG TABLET NG SCH ×3 (06:28→21:10)
[2019-10-08] MEDS: DILTIAZEM HCL 30MG TABLET PO SCH ×3 (06:29→21:10)
[2019-10-08] MEDS: PANTOPRAZOLE SODIUM 40 MG/VIAL IV SCH ×2 (08:43→21:09)
[2019-10-08] MEDS: AMIODARONE HCL 200 MG TABLET PO SCH (08:44)
[2019-10-08] MEDS: CARVEDILOL 3.125 MG TABLET GT SCH ×2 (08:44→21:10)
[2019-10-08] MEDS: ASPIRIN 81MG TABLET PO SCH (08:44)
[2019-10-08] MEDS: LEVETIRACETAM 500MG PREMIX 100 ML IV SCH ×2 (08:47→21:08)
[2019-10-08] MEDS ORDERED: CLONIDINE 0.1MG TABLET PO PRN (15:45)
[2019-10-08] MEDS: ATORVASTATIN CALCIUM 10MG TABLET PO SCH (21:10)
[2019-10-09] VITALS (11 sets, daily range): BP systolic 146–158; BP diastolic 58–78
[2019-10-09] MEDS: INSULIN LISPRO 100 UNITS/ML SUBCUT SCH ×4 (00:22→17:13)
[2019-10-09] MEDS: IPRATROPIUM BROMIDE (0.02%) 0.5MG/2.5ML NEB HHN SCH ×3 (01:58→14:14)
[2019-10-09] MEDS: METHIMAZOLE 10MG TABLET NG SCH ×2 (05:55→14:32)
[2019-10-09] MEDS: BLOOD SUGAR DIAGNOSTIC STRIP TEST SCH ×4 (05:57→17:13)
[2019-10-09] MEDS: DILTIAZEM HCL 30MG TABLET PO SCH ×2 (05:57→14:32)
[2019-10-09] MEDS: ASPIRIN 81MG TABLET PO SCH (08:11)
[2019-10-09] MEDS: PANTOPRAZOLE SODIUM 40 MG/VIAL IV SCH (08:11)
[2019-10-09] MEDS: CARVEDILOL 3.125 MG TABLET GT SCH (08:11)
[2019-10-09] MEDS: LEVETIRACETAM 500MG PREMIX 100 ML IV SCH (08:12)
[2019-10-09] MEDS: AMIODARONE HCL 200 MG TABLET PO SCH (08:14)
== END 2019-10-09 18:50 | DRG 3 ==
LOC: ER 10:35 → 3WST 12:02 → ENRESERV 14:12 → CVICU 09-25 16:17 → 5EST 10-03 06:24
PROVIDERS: ADMIT Internal Medicine; ATTEND Internal Medicine
PROC: 30233N1 Transfusion of Nonautologous Red Blood Cells into Peripheral Vein, Percutaneous Approach (ICD-10-PCS; 2019-09-22)
PROC: 5A1955Z Respiratory Ventilation, Greater than 96 Consecutive Hours (ICD-10-PCS; 2019-09-22)
PROC: 0BH18EZ Insertion of Endotracheal Airway into Trachea, Via Natural or Artificial Opening Endoscopic (ICD-10-PCS; 2019-09-22)
PROC: 0DJ68ZZ Inspection of Stomach, Via Natural or Artificial Opening Endoscopic (ICD-10-PCS; principal; 2019-09-23)
PROC: 0DJD8ZZ Inspection of Lower Intestinal Tract, Via Natural or Artificial Opening Endoscopic (ICD-10-PCS; 2019-09-24)
PROC: 02HV33Z Insertion of Infusion Device into Superior Vena Cava, Percutaneous Approach (ICD-10-PCS; 2019-09-25)
PROC: B548ZZA Ultrasonography of Superior Vena Cava, Guidance (ICD-10-PCS; 2019-09-25)
PROC: 4A00X4Z Measurement of Central Nervous Electrical Activity, External Approach (ICD-10-PCS; 2019-09-29)
PROC: 0GBJ3ZZ Excision of Thyroid Gland Isthmus, Percutaneous Approach (ICD-10-PCS; 2019-10-01)
PROC: 0B113F4 Bypass Trachea to Cutaneous with Tracheostomy Device, Percutaneous Approach (ICD-10-PCS; 2019-10-01)
PROC: 0DH68UZ Insertion of Feeding Device into Stomach, Via Natural or Artificial Opening Endoscopic (ICD-10-PCS; 2019-10-02)
PROC: 02HV33Z Insertion of Infusion Device into Superior Vena Cava, Percutaneous Approach (ICD-10-PCS; 2019-10-07)
PROC: B548ZZA Ultrasonography of Superior Vena Cava, Guidance (ICD-10-PCS; 2019-10-07)
DX: K29.71 Gastritis, unspecified, with bleeding (principal); J96.01 Acute respiratory failure with hypoxia; I63.511 Cerebral infarction due to unspecified occlusion or stenosis of right middle cerebral artery; E43 Unspecified severe protein-calorie malnutrition; D62 Acute posthemorrhagic anemia; I69.354 Hemiplegia and hemiparesis following cerebral infarction affecting left non-dominant side; J98.11 Atelectasis; I42.9 Cardiomyopathy, unspecified; E87.0 Hyperosmolality and hypernatremia; E87.3 Alkalosis; Z99.11 Dependence on respirator [ventilator] status; I48.92 Unspecified atrial flutter; G93.40 Encephalopathy, unspecified; I50.22 Chronic systolic (congestive) heart failure; I48.20 Chronic atrial fibrillation, unspecified; K57.11 Diverticulosis of small intestine without perforation or abscess with bleeding; K64.8 Other hemorrhoids; E78.5 Hyperlipidemia, unspecified; I48.0 Paroxysmal atrial fibrillation; I11.0 Hypertensive heart disease with heart failure; I49.3 Ventricular premature depolarization; J44.9 Chronic obstructive pulmonary disease, unspecified; E87.6 Hypokalemia; Z20.828 Contact with and (suspected) exposure to other viral communicable diseases; I27.20 Pulmonary hypertension, unspecified; G40.909 Epilepsy, unspecified, not intractable, without status epilepticus; E05.90 Thyrotoxicosis, unspecified without thyrotoxic crisis or storm; D69.6 Thrombocytopenia, unspecified; I49.1 Atrial premature depolarization; R13.10 Dysphagia, unspecified; I69.320 Aphasia following cerebral infarction; Z79.01 Long term (current) use of anticoagulants; Z86.718 Personal history of other venous thrombosis and embolism; Z78.1 Physical restraint status; E87.8 Other disorders of electrolyte and fluid balance, not elsewhere classified
CPT/HCPCS: 31500; 36415; 36600; 70551; 71045; 76937; 80048; 80053; 82375; 82607; 82805; 82962; 83036; 83540; 83550; 83735; 83880; 84132; 84439; 84443; 84478; 84481; 84484; 85014; 85018; 85025; 85044; 86850; 86900; 86920; 87070; 87635; 93005; 93306; 93970; 94002; 94003; 94640; 95816; 96374; 97162; 99291; C1725; C9113; J0690; J1120; J1650; J1815; J1953; J2060; J2250; J2704; J3010; J3480; J3490; J7050; J7060; P9016; U0003-CS